=== PATIENT | male | born 1980 | race Caucasian/White ===

== ENCOUNTER 2022-02-27 09:43 | Observation (INO) | payer OTHER ==
[~2022-02-27 09:43] MED LIST: ATARAX 25MG25 MG/TAB PO; K-TAB20 PO; LEXAPRO20 MG PO; LINZESS72 MCG PO; NO HOME MEDICATIONS; NORCO 325 MG-51 TAB PO; PRIL40 PO; PRILOSEC 20MG20 MG PO; SENNA-S 50 MG-81 TAB PO; SEROQUEL300 MG PO; XIFAXAN550 MG PO
[2022-02-27 13:23] VITALS: BP 102/82; PULSE 82; TEMP 98.1
[2022-02-27 16:00] VITALS: BP 112/76; PULSE 112; TEMP 98.3
--- NOTE | 2022-02-27 17:52 | NUR ---
NEW DIRECT ADMIT FROM HOME. COLONSCOPY ORDERED FOR TOMORROW. IV TO LEFT FOREARM PLACED BY ED NURSE. ALERT AND ORIENTED X3.
--- NOTE | 2022-02-27 18:21 | NUR ---
PATIENT IS REFUSING TO DRINK THE GOLYTLEY PREP. DR SANDERS NOTIFIED AND LEFT MESSAGE.
[2022-02-27 20:25] VITALS: BP 103/68; PULSE 81; TEMP 97.8
[2022-02-27 23:58] VITALS: BP 98/67; PULSE 91; TEMP 97.7
[2022-02-28] VITALS (11 sets, daily range): BP systolic 89–113; BP diastolic 58–81; PULSE 68–82; TEMP 97.6–98.2
--- NOTE | 2022-02-28 00:20 | NUR ---
STARTED ORDERED MIRALAX AND GATORADE PREP AT 2030. PATIENT GIVEN PRN ZOFRAN APPROX 2200 D/T C/O NAUSEA. PATIENT ENCOURAGED TO CONTINUE DRINKING BOWEL PREP. PATIENT STILL HAD APPROX 20-25 OZ OF GATORADE TO DRINK AT MIDNIGHT. PATIENT REPORTS HAVING NO BOWEL MOVEMENTS. NOTIFIED EMILY SORENSON FOR ADDITIONAL ORDERS AND INSTRUCTED TO CONTINUE TO ENCOURAGE PATIENT TO KEEP DRINKING BOWEL PREP FOR ADDITIONAL HOUR. EMILY SORENSON INFORMED THIS NURSE SHE HAS BEEN IN CONTACT WITH DR. SANDERS REGARDING PATIENT. WILL CONTINUE TO MONITOR.
--- NOTE | 2022-02-28 06:24 | NUR ---
PATIENT DID NOT FINISH MIRALAX/GATORADE BOWEL PREP. PATIENT ALSO DID NOT HAVE ANY BOWEL MOVEMENTS THIS SHIFT.
--- NOTE | 2022-02-28 08:10 | NUR ---
SHIFT ASSESSMENT COMPLETED AND MORNING MEDICATIONS ADMINISTERED PER ORDER. PATIENT IS ALERT AND ORIENTED X4. C/O PAIN 5/10 TO ABD, BUT DENIES NEED FOR PAIN MEDICATION AT THIS TIME AND STATES THIS IS HIS BASELINE. LUNGS CTA. DID NOT FINISH BOWEL PREP LAST NIGHT, NOR HAS HE HAD A BM. DR. SANDERS IN TO SEE PATIENT THIS MORNING, UPDATED REGARDING PATIENT'S LACK OF BM. PER DR. SANDERS, PATIENT WILL NOT BE HAVING COLONOSCOPY TODAY AND IS OKAY TO BE ON A CLEAR LIQUID DIET FOR NOW. PATIENT HYPOTENSIVE THIS MORNING, MOST RECENT BP CHECK WAS 84/60. PATIENT ASYMPTOMATIC AND STATES HE USUALLY RUNS LOW. YANI SORENSON, UPDATED. WILL RECHECK BP IN 1 HOUR. DENIES FURTHER NEEDS. CALL LIGHT WITHIN REACH.
--- NOTE | 2022-02-28 10:05 | NUR ---
FERN met with the patient to discuss discharge plan. The patient lives in [place] with his , Patricia (ph#[phone]). He reports independence with ADLs and does not have any DME. The patient states that he does not have a PCP. He is listed as [facility]. FERN inquired if he is set up at the [facility]. The patient states is suppose to be apart of the [employer], but has not seen anyone. He shares that he also has Medicare, [employer], and and plans to go the civilian route with getting a PCP. He receives his medications from [facility] in [place]. The patient does not have a DPOA-HC. The patient plans to return home with his upon discharge. No additional needs at this time. *Discharge plan: home with *
--- NOTE | 2022-02-28 16:53 | NUR ---
MIRALAX AND RELISTOR NOT IN STOCK IN [facility], PHARMACY UPDATED WITH REQUEST TO BRING MEDICATIONS WHEN AVAILABLE.
--- NOTE | 2022-02-28 17:30 | NUR ---
PATIENT C/O INCREASED ANXIETY, PRN ATIVAN NOT AVAILABLE YET ORDER IS FOR Q8 HOURS. DR. CHIU UPDATED, NEW ORDER RECEIVED FOR 0.5MG ATIVAN X1 NOW. PATIENT HAS PRN ORDER FOR ENEMA, STATES HE WANTS TO REST NOW AND WILL LET STAFF KNOW IF HE WANTS TO DO ENEMA OR NOT. CALL LIGHT WITHIN REACH, DENIES FURTHER NEEDS.
--- NOTE | 2022-02-28 18:28 | NUR ---
PATIENT STATES HE IS FEELING A LITTLE LESS ANXIOUS NOW, AND OVERALL IS FEELING BETTER. PATIENT AGREEABLE TO DRINK MIRALAX BOWEL PREP. PATIENT STATES HE HAS ALSO DECIDED THAT HE IS OKAY GETTING AN ENEMA, BUT STATES HE WOULD LIKE TO DO IT WHEN HE GETS HIS EVENING MEDICATIONS, WHICH HE WOULD LIKE TO HAVE AROUND 1930. WILL UPDATE HS RN.
--- NOTE | 2022-02-28 18:48 | NUR ---
The patient is up to the bathroom at this time. He is attempting another bowel prep for a colonoscopy tomorrow. The patient was informed that if he requests an enema we would perform one, otherwise don't mention it to him due to anxiety. Will return for medications and assessment soon.
[2022-03-01] VITALS (12 sets, daily range): BP systolic 75–102; BP diastolic 44–66; PULSE 71–87; TEMP 97.4–98.2
--- NOTE | 2022-03-01 06:16 | NUR ---
This patient has had a successful bowel prep. The stool is still a muddy water but liquid. He requested not to have the enema until later this morning, he did not want the Enema last night. The patient's IV in the left Wrist did go bad, new IV started in the right forearm. 22g Diffusics IV. No other concerns at this time.
--- NOTE | 2022-03-01 08:07 | NUR ---
DR. SANDERS UPDATED WITH PATIENT'S PROGRESS WITH BOWEL PREP. PER COREMAKER BENCH RN, PATIENT FINISHED HIS BOWEL PREP AND IS HAVING LIQUID, MUDDY STOOL. PER DR. SANDERS, WE WILL NEED TO WAIT FOR CT RESULTS UNTIL PROCEEDING WITH COLONOSCOPY. CT CONTACTED, STATES THEY WILL TRY TO DO CT IN THE NEXT TWO HOURS. PER DR. SANDERS, HOLD OFF ON ENEMA UNTIL AFTER CT IF PATIENT IS AGREEABLE TO DO IT. WILL UPDATE PATIENT REGARDING PLAN OF CARE.
--- NOTE | 2022-03-01 08:52 | NUR ---
SHIFT ASSESSMENT COMPLETED AND MORNING MEDICATIONS ADMINISTERED PER ORDER. PATIENT IS ALERT AND ORIENTED X4. C/O PAIN 05/21 THAT HE STATES IS CHRONIC. PRN PAIN MEDICATION OFFERED, PATIENT REFUSED. STATES HE IS STILL HAVING LIQUID STOOL THAT IS BROWN IN COLOR. UPDATED PATIENT ON PLAN OF CARE, PATIENT IS AGREEABLE. STATES HE IS FEELING A LITTLE BETTER NOW THAT HE HAS BEEN ABLE TO HAVE A BM. UDPATED PATIENT THAT HE MUST BE NPO 2 HOURS PRE-PROCEDURE PER DR. SANDERS, PATIENT VERBALIZED UNDERSTANDING. DENIES FURTHER NEEDS. CALL LIGHT WITHIN REACH.
--- NOTE | 2022-03-01 09:45 | NUR ---
DR. SANDRES UPDATED WITH CT SCAN RESULTS. PER DR. SANDERS, COLONOSCOPY UNLIKELY TODAY, BUT SHE WILL REVIEW CT RESULTS AND UPDATE PLAN OF CARE. PATIENT MADE NPO AT 0945 IN CASE COLONOSCOPY DOES HAPPEN TODAY, PATIENT AGREEABLE, STATES HE WOULD LIKE TO SLEEP FOR NOW.
--- NOTE | 2022-03-01 13:36 | NUR ---
Initial visit; Civil Division Deputy Sheriff introduced herself to patient inquiring if there is anything she could do for him. He said there isn't but when Civil Division Deputy Sheriff offered to keep him in her prayers he said this would be fine. introduced herself to his Patricia and wished them both God's blessings.
--- NOTE | 2022-03-01 14:27 | NUR ---
PATIENT C/O SOME ANXIETY THIS AFTERNOON, REQUESTED PRN ATIVAN, WHICH WAS GIVEN PER ORDER. PATIENT ALSO NOTED TO HAVE VAPE PEN IN ROOM, NOTIFIED PATIENT THAT THIS IS A NON-SMOKING FACILITY AND HE CANNOT HAVE HIS VAPE PEN IN HIS HOSPITAL ROOM, PATIENT VERBALIZED UNDERSTANDING AND WAS AGREEABLE TO HAVE SECURITY TAKE HIS VAPE PEN UNTIL HE DISCHARGES. VAPE PEN HANDED OFF TO SECURITY BRI WITH PATIENT LABEL ATTACHED.
--- NOTE | 2022-03-01 18:22 | NUR ---
PATIENT IN BED AT THIS TIME. STATES HE DOES NOT WANT TO DO BOWEL PREP TODAY. PATIENT SCHEDULED FOR COLONOSCOPY TOMORROW. NPO AT MIDNIGHT PER ANESTHESIA, PATIENT AWARE. DENIES NEEDS AT THIS TIME. CALL LIGHT WITHIN REACH.
[2022-03-02] VITALS (8 sets, daily range): BP systolic 70–108; BP diastolic 52–62; PULSE 73–77; TEMP 97.7–98.3
--- NOTE | 2022-03-02 00:36 | NUR ---
The patient's blood pressure was 77/44, on recheck with a manual blood pressure cuff, the patient's pressure was 70/52. MARCIE Vicente was notified, labs were ordered, and the patient was started on fluids. 1L bolus wide open, and then maintainance of LR at 150ml/hr. The patient states that he doesn't feel bad, that he is sleeping. No other concerns at this time.
--- NOTE | 2022-03-02 00:41 | NUR ---
With a MEWS score of 4, warehouse order selector was notified, as well as MARCIE Vicente. Will recheck score after 1L bolus is completed.
[2022-03-02 00:47] LABS: BASO # 0.1 K/mm3 (0.0-0.2); BASO % 1.4 % (0.0-2.0); EOS # 0.3 K/mm3 (0.0-0.7); EOS % 5.6 % (0.0-4.0); GRAN # 1.4 K/mm3 (1.4-6.5); GRAN % 31.2 % (42.2-75.2); HEMOGLOBIN 11.7 g/dl (13.5-18.0); LYMPH # 2.4 K/mm3 (1.2-3.4); LYMPH % 53.2 % (20.0-51.0); MEAN CELL VOLUME 83 fl (80.0-100.0); MEAN CORPUSCULAR HEMOGLOBIN 29 pg (27-31); MEAN CORPUSCULAR HGB CONC 35 g/dl (33.0-37.0); MONO # 0.4 K/mm3 (0.1-0.6); MONO % 8.6 % (1.7-9.3); PLATELET COUNT 233 K/mm3 (130-400); RED BLOOD COUNT 4.05 M/mm3 (4.20-5.60); REDCELL DISTRIBUTION WIDTH-CV 14.7 % (11.5-14.5)
[2022-03-02 00:48] LABS: HEMATOCRIT 33.4 % (42.0-52.0)
[2022-03-02 01:05] LABS: ALBUMIN 3.3 gm/dL (3.5-5.0); BILIRUBIN,TOTAL 0.9 mg/dL (0.2-1.2); CALCIUM 8.2 mg/dL (8.4-10.2); CREATININE, serum 1.15 mg/dL (0.72-1.25); MAGNESIUM 2.2 mg/dL (1.6-2.6)
--- NOTE | 2022-03-02 02:00 | NUR ---
THE PATIENT NEEDED TO GET UP TO THE BATHROOM, THIS RN ASSISTED TO THE BATHROOM, HOWEVER THE PATIENT PULLED HIMSELF INTO THE BATHROOM, SHUT THE DOOR, AND LEFT THE LIGHTS OFF. WHEN THIS RN TOLD THE PATIENT "I REALLY NEED TO BE ABLE TO MONITOR YOU BECAUSE YOUR BLOOD PRESSURES ARE SO LOW." THE PATIENT RESPONDED WITH "YOU WILL STAND OUTSIDE THE DOOR WHILE I GO TO THE BATHROOM." THERE IS SUSPICIOUS ACTIVITY GOING ON, HE WAS GETTING UP TO THE BATHROOM, THE PCT AND I NOTICED THAT HE WAS CHECKING HIS POCKETS FOR SOMETHING, LOOKED ON THE BED AND DIDN'T FIND ANYTHING. NOTIFIED MARCIE SCOTT OF SUSPICIOUS ACTIVITY AND SHE ORDERED A UA/DOA SCREEN. THE PATIENT IS BEING VERY AGGRESSIVE VERBALLY.
--- NOTE | 2022-03-02 02:06 | NUR ---
MARCIE SCOTT IS AT BEDSIDE. THE PATIENT IS VERY ANGRY. AFTER INITIAL BOLUS, THE MANUAL PRESSURE WAS 68/42. THE PATIENT CONTINUES TO SAY THAT HE CAN NOT TELL THAT IT IS LOW AND SAYS "IT'S ALWAYS THAT LOW!" LABS WERE DRAWN AND THERE WAS A CRITICAL POTASSIUM OF 2.0. TYLER ORDERED IV POTASSIUM, HOWEVER THE PATIENT IS REFUSING. WILL ATTEMPT TO GET AN ORDER FOR ORAL REPLACEMENT. TYLER ALSO ORDERED AN ABG, AND THE PATIENT REFUSED THAT WELL. WILL DO MUCH THE PATIENT ALLOWS AT THIS TIME.
--- NOTE | 2022-03-02 03:00 | NUR ---
THE PATIENT IS REFUSING POTASSIUM, AND IS ALSO REFUSING TELEMETRY. TO GIVE IV POTASSIUM, OUR PROTOCOL IS FOR THE PATIENT TO BE ON TELEMETRY. THIS RN WILL ATTEMPT TO GIVE ORAL REPLACEMENT TO GET SOMETHING IN HIM.
--- NOTE | 2022-03-02 07:32 | NUR ---
DR. SANDERS UPDATED THIS MORNING REGARDING HYPOTENSION AND HYPOKALEMIA OVERNIGHT. PER DR. SANDERS, PATIENT TO BE NPO EXCEPT PO POTASSIUM. PATIENT UPDATED AND AGREEABLE. THIS RN ENCOURAGED PATIENT TO DO IV POTASSIUM AND EDUCATED PATIENT THAT IF HIS POTASSIUM DOES NOT COME UP, HE MAY NOT BE ABLE TO GET A COLONOSCOPY TODAY, PATIENT STILL REFUSING IV POTASSIUM.
[2022-03-02 08:04] LABS: TRICYCLIC ANTIDEPRESS URINE POSITIVE
--- NOTE | 2022-03-02 08:51 | NUR ---
MORNING MEDICATIONS ADMINISTERED PER ORDER. PATIENT REFUSED MORNING ASSESSMENT, WILL REATTEMPT AT A LATER TIME. PATIENT ALSO REFUSING TELEMETRY. EDUCATION PROVIDED ON PATIENT REGARDING IMPORTANCE OF TELEMETRY MONITORING WITH HIS HYPOKALEMIA AND POTASSIUM REPLACEMENT, PATIENT VERBALIZED UNDERSTANDING BUT CONTINUES TO REFUSE TELEMETRY AND FURTHER ASSESSMENT. PATIENT IN BED AT THIS TIME WITH BED IN LOWEST, LOCKED POSITION AND CALL LIGHT WITHIN REACH. NOTIFIED PATIENT TO LET THIS NURSE KNOW IF HE NEEDS ANYTHING, PATIENT AGREEABLE.
--- NOTE | 2022-03-02 09:54 | NUR ---
PATIENT VERBALIZED FRUSTRATION WITH THIS NURSE REGARDING HIS STAY, PATIENT STATES HE WANTS TO GO HOME. THIS RN REMINDED PATIENT THAT HE HAS THE RIGHT TO LEAVE AGAINST MEDICAL ADVICE AND TO NOTIFY STAFF IF HE WOULD LIKE TO DO THAT, PATIENT VERBALIZED UNDERSTANDING. PATIENT WITH OFF AND ON FLAT AFFECT AND VERBAL AGRESSION, THIS RN COMPLETED [place] SUIDIDE SCREENING WHICH PLACED PATIENT AT MODERATE RISK DUE TO PREVIOUS SUICIDE ATTEMPT GREATER THAN 3 MONTHS AGO. . PATIENT DENIES ANY THOUGHTS OR WISHES TO HARM HIMSELF AT THIS TIME AND DENIES ANY PLAN TO HURT HIMSELF. PATIENT DENIES FURTHER NEEDS AT THIS TIME. PATIENT NOTIFIED TO REACH OUT TO STAFF IF THIS CHANGES, PATIENT VERBALIZED UNDERTANDING AND IS AGREEABLE. CALL LIGHT WITHIN REACH, ORDER PLACED TO RECHECK POTASSIUM IN 3 HOURS PER PROTOCOL.
--- NOTE | 2022-03-02 10:56 | NUR ---
DR. CHIU UPDATED ON PATIENT'S [place] SUICIDE RISK BEING SCORED MODERATE. FUEL EFFICIENT AUTOMOBILE DESIGNER UPDATED WELL WHO STATES PATIENT DOES NOT NEED TO BE ON SUICIDE PRECAUTIONS UNLESS HE HAS AN ACTIVE DESIRE TO HARM HIMSELF OR PLAN.
--- NOTE | 2022-03-02 11:10 | NUR ---
PER COOK BOAT, THREE LAB TECHS ATTEMPTED TO DRAW STAT BMP AND WERE UNSUCCESSFUL. [facility] UPDATED REGARDING NEED FOR ASSISTANCE DRAWING STAT LABS, AIV TO ATTEMPT LAB DRAW.
[2022-03-02 11:46] LABS: CALCIUM 8.4 mg/dL (8.4-10.2); CREATININE, serum 1.11 mg/dL (0.72-1.25)
[2022-03-02 12:19] LABS: POTASSIUM 2.2 mmol/L (3.5-4.5)
--- NOTE | 2022-03-02 12:33 | NUR ---
CRITICAL POTASSIUM RECEIVED OF 2.2. DR. CHIU, DR. SANDERS, AND ENDO UPDATED. PER ANESTHESIA, PATIENT WILL NOT BE ABLE TO HAVE COLONOSCOPY TODAY DUE TO HYPOKALEMIA. DR. SANDERS AT BEDSIDE AT THIS TIME TO DISCUSS PLAN OF CARE WITH PATIENT.
--- NOTE | 2022-03-02 13:44 | NUR ---
WHEN ATTEMPTING TO GIVE PATIENT HIS SCHEDULED DOSE OF POTASSIUM, PATIENT BECAME VERY AGITATED. PATIENT ASKED IF HE WAS GETTING DISCHARGED YET, THIS RN INFORMED PATIENT THAT NO DISCHARGE ORDERS HAD BEEN PLACED YET AND THAT DR. CHIU WAS REVIEWING HIS LAB WORK TO MAKE A PLAN OF CARE/DISCHARGE PLAN. PATIENT INFORMED THAT ONCE DISCHARGE ORDER WAS RECEIVED, PAPERWORK WOULD BE COMPLETED SO PATIENT COULD DISCHARGE, BUT THAT THIS PROCESS TAKES TIME. PATIENT BECAME INCREASINGLY MORE AGITATED AND STATED HE WANTED TO LEAVE. THIS RN REMINDED PATIENT HE HAS A RIGHT TO LEAVE AGAINST MEDICAL ADVICE, PATIENT STATES THAT IS WHAT HE WOULD LIKE TO DO AT THIS TIME. EDUCATED PATIENT THAT HIS POTASSIUM IS CRITICALLY LOW AND ADVISED PATIENT TO AWAIT DISCHARGE ORDERS AND MEDICATIONS SO HE CAN TAKE POTASSIUM SUPPLEMENT POST DISCHARGE PER ORDER , PATIENT STATES HE HAS POTASSIUM AT HOME AND WANTS TO LEAVE. DR. CHIU UPDATED, AMA PAPERWORK SIGNED. VAPE PEN RETURNED TO PATIENT. IV TO RIGHT FOREARM REMOVED WITH CATHETER INTACT, MINIMAL BLEEDING NOTED, GAUZE DRESSING APPLIED. PATIENT DENIES FURTHER NEEDS AT THIS TIME.
[2022-03-02 15:39] LABS: COLLECTION METHOD CLEAN CATCH
[2022-03-02 15:57] LABS: URINE APPEARANCE Clear (CLEAR/HAZY); URINE BLOOD Negative (NEGATIVE); URINE COLOR Yellow (YELLOW); URINE GLUCOSE Negative (NEGATIVE); URINE KETONE Negative (NEGATIVE); URINE NITRATE Negative (NEGATIVE); URINE PROTEIN(semi-quant) Negative (NEGATIVE); URINE UROBILINOGEN 0.2 E.U/dL (0.2-1.0)
[2022-03-02 16:02] LABS: SQUAMOUS EPITHELIAL 0-2 /hpf (0-10); URINE BACTERIA None Seen /hpf (NONE SEEN); URINE RBC None Seen /hpf (0-2)
== END 2022-03-02 13:55 | disposition left against medical advice (07) ==
LOC: MEDICAL 09:43
PROVIDERS: Nurse Practitioner Family; ADMIT Student in an Organized Health Care Education/Training Program
DX: K59.09 Other constipation (principal); E87.6 Hypokalemia; I95.9 Hypotension, unspecified; F41.9 Anxiety disorder, unspecified; F32.9 Major depressive disorder, single episode, unspecified; F43.10 Post-traumatic stress disorder, unspecified; R63.4 Abnormal weight loss; G47.00 Insomnia, unspecified; K21.9 Gastro-esophageal reflux disease without esophagitis; R74.8 Abnormal levels of other serum enzymes; E87.20 Acidosis, unspecified; Z87.891 Personal history of nicotine dependence; Z53.29 Procedure and treatment not carried out because of patient's decision for other reasons
CPT/HCPCS: G0378; G0379; J2212; J2405; J2765; J7120; Q9967